=== PATIENT | male | born 1960 | race Caucasian/White ===

== ENCOUNTER 2017-08-20 01:57 | Emergency (ER) | payer OTHER ==
[~2017-08-20] VITALS: Ht 177.8 cm; Wt 63.5 kg
[2017-08-20 02:14] VITALS: BP 125/78; PULSE 86; RESP 20; O2SAT 98
[2017-08-20] MEDS ORDERED: SODIUM CHLORIDE 0.9% FLUSH 10 ML FLUSH IVF PRN (02:15)
[2017-08-20] MEDS ORDERED: ASPIRIN 81 MG CHEW TAB PO ONE (02:15)
--- NOTE | 2017-08-20 02:19 | PD ---
HPI Chief Complaint: Medical Clearance Time Seen by Provider: 02:08 Travel History International Travel<30 days: No Contact w/Intl Traveler<30days: No Traveled to known affect area: No History of Present Illness HPI This is a 56-year-old male who presents under police custody for medical clearance to go to group home. This evening he was arrested for battery. Shortly after arrest the patient began complaining of chest pain. History is extremely limited secondary to patient's uncooperativeness, verbal hostility, intoxication. During most of the history and examination the patient was verbally abusive and refused to answer most questions. I was able to gather that he is having some right-sided chest pain which seems to be worse with palpation. No other apparent associated signs or symptoms or identified as the patient refuses most questioning. He has a history of tobacco use and alcohol use. He denies any personal or family history of coronary artery disease. He denies any cough, congestion, history of hypertension, diabetes, hyperlipidemia. [facility] Social History Alcohol Use: Yes Tobacco Use: Yes Allergies-Medications (Allergen,Severity, Reaction): Coded Allergies: No Known Allergies (Unverified , 08/20/17) Review of Systems ROS Limitations: Intoxication, Combative Physical Exam Exam Limitations: Intoxication, Combative Narrative GENERAL: This is a disheveled male who is intoxicated and verbally abusive. SKIN: Warm and dry. HEAD: Atraumatic. Normocephalic. EYES: Pupils equal and round. No scleral icterus. No injection or drainage. ENT: No nasal bleeding or discharge. Mucous membranes pink and moist. NECK: Trachea midline. No JVD. CARDIOVASCULAR: Regular rate and rhythm. No murmur appreciated. RESPIRATORY: No accessory muscle use. Clear to auscultation. Breath sounds equal bilaterally. GASTROINTESTINAL: Abdomen soft, non-tender, nondistended. Hepatic and splenic margins not palpable. MUSCULOSKELETAL: No obvious deformities. The patient reports some tenderness to palpation of the right upper chest wall. There is no bruising or soft tissue swelling or open wounds. NEUROLOGICAL: Awake and alert. No obvious cranial nerve deficits. Motor grossly within normal limits. Slurred speech. Data Data Last Documented VS Vital Signs Date Time Temp Pulse Resp B/P (MAP) Pulse Ox O2 Delivery O2 Flow Rate FiO2 08/20/17 04:00 08/20/17 02:25 99 Room Air 08/20/17 02:14 86 20 Orders Orders Electrocardiogram (08/20/17 02:14) Basic Metabolic Panel (Bmp) (08/20/17 02:14) Ckmb (Isoenzyme) Profile (08/20/17 02:14) Complete Blood Count With Diff (08/20/17 02:14) Magnesium (Mg) (08/20/17 02:14) Prothrombin Time / Inr (Pt) (08/20/17 02:14) Act Partial Throm Time (Ptt) (08/20/17 02:14) Troponin I (08/20/17 02:14) Chest, Single Ap (08/20/17 02:14) Ecg Monitoring (08/20/17 02:14) Bilateral Bp Monitoring (08/20/17 02:14) Iv Access Insert/Monitor (08/20/17 02:14) Oximetry (08/20/17 02:14) Oxygen Administration (08/20/17 02:14) Aspirin Chew (Aspirin Chew) (08/20/17 02:15) Sodium Chloride 0.9% Flush (Ns Flush) (08/20/17 02:15) Alcohol (Ethanol) (08/20/17 02:14) CKMB (08/20/17 02:30) CKMB% (08/20/17 02:30) Sodium Chlor 0.9% 1000 Ml Inj (Ns 1000 M (08/20/17 03:17) Oral Rehydration (08/20/17 03:17) Ed Discharge Order (08/20/17 03:31) Labs Laboratory Tests Test 08/20/17 02:30 White Blood Count 8.3 TH/MM3 Red Blood Count 4.38 MIL/MM3 Hemoglobin 14.6 GM/DL Hematocrit 42.8 % Mean Corpuscular Volume 97.7 FL Mean Corpuscular Hemoglobin 33.3 PG Mean Corpuscular Hemoglobin Concent 34.1 % Red Cell Distribution Width 14.0 % Platelet Count 167 TH/MM3 Mean Platelet Volume 8.4 FL Neutrophils (%) (Auto) 66.9 % Lymphocytes (%) (Auto) 19.4 % Monocytes (%) (Auto) 12.1 % Eosinophils (%) (Auto) 0.8 % Basophils (%) (Auto) 0.8 % Neutrophils # (Auto) 5.6 TH/MM3 Lymphocytes # (Auto) 1.6 TH/MM3 Monocytes # (Auto) 1.0 TH/MM3 Eosinophils # (Auto) 0.1 TH/MM3 Basophils # (Auto) 0.1 TH/MM3 CBC Comment DIFF FINAL Differential Comment Prothrombin Time 10.7 SEC Prothromb Time International Ratio 1.1 RATIO Activated Partial Thromboplast Time 25.4 SEC Blood Urea Nitrogen 11 MG/DL Creatinine 0.76 MG/DL Random Glucose 86 MG/DL Calcium Level 8.3 MG/DL Magnesium Level 2.0 MG/DL Sodium Level 139 MEQ/L Potassium Level 4.3 MEQ/L Chloride Level 104 MEQ/L Carbon Dioxide Level 29.3 MEQ/L Anion Gap 6 MEQ/L Estimat Glomerular Filtration Rate 106 ML/MIN Total Creatine Kinase 829 U/L Creatine Kinase MB 10.1 NG/ML Creatine Kinase MB % 1.2 % Troponin I LESS THAN 0.02 NG/ML Ethyl Alcohol Level 135 MG/DL [facility] Medical Decision Making Medical Screen Exam Complete: Yes Emergency Medical Condition: Yes Medical Record Reviewed: Yes Differential Diagnosis Malingering, alcohol intoxication, chest wall contusion, acute coronary syndrome , pneumothorax, pulmonary embolism, rib fracture Narrative Course The patient was placed on ECG monitoring pulse oximetry. A 12 leak EKG was obtained. Plan is for basic lab work, chest x-ray, EKG. A full dose aspirin was ordered. Chest x-ray reveals hyperinflated lungs with no acute abnormalities. EKG reveals sinus rhythm with no acute ischemic changes. CBC is unremarkable. Alcohol level is elevated at 135. Troponin is negative. Total CK is 829. Therefore oral rehydration and IV fluids will be initiated. The patient refused aspirin. His pain is certainly atypical given its palpable reproducibility. The patient is medically cleared for police custody. Diagnosis Primary Impression: Atypical chest pain Additional Impressions: Alcohol intoxication Agitation Med/Other Pt SpecificInfo: No Change to Meds Disposition: [address] LAW ENFORCEMNT Condition: Stable Isac Centeno Aug 20, 2017 02:19
[2017-08-20 02:37] LABS: AUTOMATED NEUTROPHIL # 5.6 TH/MM3 (1.8-7.7); BASOPHIL # 0.1 TH/MM3 (0-0.2); BASOPHIL % 0.8 % (0.0-2.0); EOSINOPHIL # 0.1 TH/MM3 (0-0.4); EOSINOPHIL % 0.8 % (0.0-4.0); HEMATOCRIT 42.8 % (39.0-51.0); HEMO FLAGS DIFF FINAL; LYMPH % 19.4 % (9.0-44.0); LYMPHOCYTE # 1.6 TH/MM3 (1.0-4.8); MEAN CELL VOLUME 97.7 FL (80.0-100.0); MEAN CORPUSCULAR HEMOGLOBIN 33.3 PG (27.0-34.0); MEAN CORPUSCULAR HGB CONC 34.1 % (32.0-36.0); MONO % 12.1 % (0.0-8.0); NEUT % 66.9 % (16.0-70.0); PLATELET COUNT 167 TH/MM3 (150-450); RED BLOOD COUNT 4.38 MIL/MM3 (4.50-5.90); WHITE BLOOD COUNT 8.3 TH/MM3 (4.0-11.0)
--- NOTE | 2017-08-20 02:37 | RADRPT ---
EXAM DATE/TIME: 08/20/2017 02:21 [place] COMPARISON: No previous studies available for comparison. INDICATIONS : Chest pain. MEDICAL HISTORY : None. SURGICAL HISTORY : None. ENCOUNTER: Initial ACUITY: 1 day PAIN SCORE: Non-responsive. LOCATION: Bilateral chest FINDINGS: 2 AP semierect portable views of the chest demonstrates the lungs to be symmetrically hyperinflated w ithout evidence of mass, infiltrate or effusion. The cardiomediastinal contours are unremarkable. O sseous structures are intact. CONCLUSION: Hyperinflated lungs with no acute cardiopulmonary disease. Eulogio Romero MD on August 20, 2017 at 2:35 Board Certified Radiologist. This report was verified electronically.
[2017-08-20 02:48] LABS: APTT (PATIENT) 25.4 SEC (24.3-30.1); INTERNATIONAL NORMALIZED RATIO 1.1 RATIO; PROTHROMBIN TIME - PATIENT 10.7 SEC (9.8-11.6)
[2017-08-20 02:52] LABS: ANION GAP 6 MEQ/L (5-15); BICARBONATE 29.3 MEQ/L (21.0-32.0); BLOOD UREA NITROGEN 11 MG/DL (7-18); CHLORIDE 104 MEQ/L (98-107); GLOMERULAR FILTRATION RATE 106 ML/MIN (>89); POTASSIUM 4.3 MEQ/L (3.5-5.1); SODIUM (NA) 139 MEQ/L (136-145)
[2017-08-20 02:55] LABS: CREATINE KINASE 829 U/L (39-308)
[2017-08-20 02:59] LABS: ALCOHOL 135 MG/DL (0-5)
[2017-08-20 03:11] LABS: CKMB 10.1 NG/ML (0.5-3.6)
[2017-08-20] MEDS ORDERED: SODIUM CHLOR 0.9% 1000 ML INJ 1,000 ML IV SCH (03:17)
--- NOTE | 2017-08-20 14:24 | EKG ---
Date Performed: 08/20/2017 Time Performed: 02:30:13 PTAGE: 56 years EKG: Sinus rhythm NORMAL ECG NO PREVIOUS TRACING DOCTOR: Ely Alicea Interpretating Date/Time 08/20/2017 14:22:57
== END 2017-08-20 04:15 ==
LOC: NEPD 01:57
DX: R07.89 Other chest pain (principal); F10.129 Alcohol abuse with intoxication, unspecified; R45.1 Restlessness and agitation; Z72.0 Tobacco use
CPT/HCPCS: 71010; 80048; 80307; 82550; 82552; 83735; 84484; 85025; 85610; 85730; 93005; 99285; J7030